=== PATIENT | male | born 1980 | race Two or more races ===

== ENCOUNTER 2017-05-26 09:43 | Outpatient (CLI) | payer OTHER | END 2017-05-26 09:58 | disposition home or self-care (01) | LOC: MRI 09:43 | DX: R22.31 Localized swelling, mass and lump, right upper limb (principal) | CPT/HCPCS: 73221 ==

== ENCOUNTER 2017-05-26 09:46 | Outpatient (CLI) | payer OTHER | END 2017-05-26 09:57 | disposition home or self-care (01) | LOC: TOM 09:46 | DX: M54.5 Low back pain (principal) ==

== ENCOUNTER 2017-07-04 10:32 | Outpatient (CLI) | payer OTHER | END 2017-07-04 11:22 | disposition home or self-care (01) | LOC: LAB 10:32 | DX: N39.0 Urinary tract infection, site not specified (principal); Z11.4 Encounter for screening for human immunodeficiency virus [HIV]; Z00.00 Encounter for general adult medical examination without abnormal findings; Z13.818 Encounter for screening for other digestive system disorders; Z13.220 Encounter for screening for lipoid disorders; Z11.3 Encounter for screening for infections with a predominantly sexual mode of transmission ==

== ENCOUNTER 2019-12-27 07:57 | Day surgery (SDC) | payer OTHER ==
[2019-12-27] MEDS ORDERED: PERCOCET 5-3251 EACH PO (12:55)
[2019-12-27] MEDS ORDERED: COLACE100 MG PO (12:59)
== END 2019-12-27 17:20 | disposition home or self-care (01) ==
LOC: CIR.AMB 07:57
PROVIDERS: ATTEND Surgery
DX: K64.8 Other hemorrhoids (principal); Z20.828 Contact with and (suspected) exposure to other viral communicable diseases

== ENCOUNTER 2022-08-30 08:52 | Outpatient (CLI) | payer OTHER ==
[~2022-08-30 08:52] MED LIST: COLACE100 MG PO; PERCOCET 5-3251 EACH PO
== END 2022-08-30 09:07 | disposition home or self-care (01) ==
LOC: RAD 08:52
PROVIDERS: ATTEND General Practice
DX: R22.31 Localized swelling, mass and lump, right upper limb (principal); M79.601 Pain in right arm; M79.671 Pain in right foot
CPT/HCPCS: 73721